=== PATIENT | male | born 1965 | race African-American/Black ===

== ENCOUNTER 2019-02-26 03:28 | Inpatient (IN) | payer MEDICARE, BC ==
[2019-02-26] VITALS (10 sets, daily range): BP systolic 79–104; BP diastolic 50–74; Ht 190.5 cm; Wt 99.8 kg
[~2019-02-26] VITALS: Ht 190.5 cm; Wt 99.8 kg
[2019-02-26] MEDS ORDERED: RENVELA800 MG PO (05:30)
[2019-02-26] MEDS ORDERED: GABAPENTIN100 MG PO (05:32)
[2019-02-26] MEDS ORDERED: SODIUM BICARBO650 MG PO (05:32)
[2019-02-26] MEDS ORDERED: MIDODRINE HCL10 MG PO (05:33)
[2019-02-26] MEDS ORDERED: ASPIRIN EC81 M1 PO (05:35)
[2019-02-26] MEDS ORDERED: HYDROCODON-ACE1 EA10 PO (05:35)
--- NOTE | 2019-02-26 05:39 | NUR ---
PT PLACED IN TRACTION ON THE FLOOR PER ER NURSES. PT TOLERATED WELL.
--- NOTE | 2019-02-26 05:44 | NUR ---
RECEIVED TO ROOM VIA [facility] FROM ER. AWAKE,ALERT.NO COMPLAITNS AT PRESENT. PORTABLE BUCKS TRACTION APPLIED TO RLE. TOLERATED WELL. ORIENTED TO ROOM. CL IN REACH
--- NOTE | 2019-02-26 07:44 | NUR ---
I have reviewed this patient and I concur with the Shift Assessment completed by the Licensed Practical Nurse today this shift.
--- NOTE | 2019-02-26 08:28 | NUR ---
0700 SUPINE IN BED WITH PORTABLE BUCKS TRACTIION IN PLACE TO RIGHT LEG INSTRUCTED NPO FOR POSSIBLE SURGICAL PROCEEDURE TODAY VERBALIZED UNDERSTANDING
--- NOTE | 2019-02-26 08:29 | NUR ---
0808 C/O PAIN 02/14 TO RIGHT LEG MORPHINE 2MG IV GIVEN OSTOMY CARE PROVIDED
--- NOTE | 2019-02-26 08:34 | NUR ---
6014 DR RODRIGUEZ AT BEDSIDE DISCUSSING SURGICAL PROCEEDURE PATIENT WAS ALLLOWED TO ASK QUESTIONS AND RECEIVED ANSWERS FROM SURGEON
[2019-02-26 09:16] LABS: BASOPHILS 0.3 % (0-2); HEMATOCRIT 32.5 % (42.0-54.0); HEMOGLOBIN 10.7 g/dL (13.5-17.5); IMMATURE GRANULOCYTES 0.2 % (0-5); LYMPHOCYTES 20.7 % (15-50); MCHC 32.9 g/dL (31.0-37.0); MCV 94.2 fL (80.0-100.0); MEAN PLATELET VOLUME 9.2 fL (7.4-10.4); MONOCYTES 6.9 % (2-11); NEUTROPHILS 69.9 % (40-80); PLATELET COUNT 294 10x3/uL (130-400); RBC 3.45 10x6/uL (4.20-6.10); RDW 15.3 % (11.5-14.5); WBC 11.6 10x3/uL (4.8-10.8)
[2019-02-26 09:32] LABS: ANION GAP 14.9 mmol/L (8-16); CALCIUM 8.5 mg/dL (8.5-10.1); CARBON DIOXIDE 23.9 mmol/L (21.0-32.0); CREATININE - SERUM 8.8 mg/dL (0.6-1.3); POTASSIUM - SERUM 4.8 mmol/L (3.5-5.1)
--- NOTE | 2019-02-26 13:14 | NUR ---
1000 PREOP GIVEN NOTIFIED PHARMACY THAT ANCEF IVPB WAS NOT AVAILABLE ON [facility] UNIT
--- NOTE | 2019-02-26 13:16 | NUR ---
1015 SURGICAL AND ANESTHESIA CONSENTS BOTH SIGNED BY PATIENT
--- NOTE | 2019-02-26 13:17 | NUR ---
1045 OR STAFF MEMBER TRANSPORTED PATIENT TO OR CALLED PHARMACY TO TAKE ANCEF TO OR INFORMED OR STAFF MEMBER TO BE ON LOOKOUT FOR IVPB
--- NOTE | 2019-02-26 18:21 | NUR ---
1600 RETURNED FROM PACU FREQUENT VITAL SIGNS INITIATED NUTRITION PROVIDED KATIUSKA DARNELL AND SCD PLACED ON JAYNE LEGS PULSE AND NEURO CHECKS Q 2 HOURS
[2019-02-27 01:28] VITALS: BP 105/71
[2019-02-27 04:59] VITALS: BP 112/64
--- NOTE | 2019-02-27 09:00 | NUR ---
ALERT AND ORIETED X4 WITHDRESSIGN INTACT TO RT. FEMURHEMOSPLIT CATH NOTED TO RT. CHEST. COLOSTOMY INTACT. IV TO RT. WRIST W/O ANY S/S OF INFECTION/INFILTRATION. SCD INTACT. ENCOURAGED TO USE CALL LIGHT FOR ASSIST.
[2019-02-27 09:01] VITALS: BP 101/53
--- NOTE | 2019-02-27 10:30 | NUR ---
PT ASSISTED VIA BED TO DIALYSIS AND STABLE AT TIME OF DEPARTURE.
[2019-02-27 11:25] LABS: ANION GAP 17.4 mmol/L (8-16); CARBON DIOXIDE 21.5 mmol/L (21.0-32.0); POTASSIUM - SERUM 4.9 mmol/L (3.5-5.1)
[2019-02-27 11:27] LABS: CREATININE - SERUM 11.5 mg/dL (0.6-1.3)
--- NOTE | 2019-02-27 15:05 | NUR ---
PT RETURNED TO ROOM AND STABLE WITH COLOSTOMY EMPTIED.
[2019-02-27 17:25] VITALS: BP 113/54
[2019-02-27 20:40] VITALS: BP 87/52
--- NOTE | 2019-02-27 22:06 | NUR ---
PATIENT IN BED ALERT AND ORENTED ABLE TO VOICE NEEDS AND WANTS TO STAFF. CALL LIGHT AND WATER IN REACH. DRESSING CDI TO RIGHT LEG. KATIUSKA HOSE AND SCD'S IN PLACE. TELEMETRY IN PLACE. FISTULA IN PLACE TO LEFT ARM ARM. HEMO SPLIT IN PLACE TO RIGHT CHEST, RIGHT WRIST IV WITH NS AT KVO. CLOSTOMY TO RIGHT SIDE OF ABD. BED LOW.
[2019-02-28 00:19] VITALS: BP 94/40
[2019-02-28 04:50] VITALS: BP 87/53
[2019-02-28 07:13] LABS: HEPATITIS C ANTIBODY <0.1 S/CO RAT (0.0-0.9)
[2019-02-28 08:58] VITALS: BP 86/44
--- NOTE | 2019-02-28 09:00 | NUR ---
ALERT AND ORIENTED X4 WITH DRESSING INTACT TO RT. FEMUR WITH NO PERIPHERAL EDEMA NOTED. KATIUSKA HOSE AND SCD INTACT WITH PEDAL PULSES NOTED. HEMOSPLIT INTACT TO RUQ OF CHEST WITH ANY S/S OF INFECTION/INFILTRATION. FALL PRECAUTIONS IN PLACE. ENCOURAGED TO USE CALL LIGHT FOR ASSIST.
--- NOTE | 2019-02-28 10:30 | NUR ---
PT. REFUSED LAB DRAW X2.
[2019-02-28 12:35] VITALS: BP 96/55
--- NOTE | 2019-02-28 13:30 | NUR ---
PT REFUSED CT PROCEDURE AFTER ATTEMPTS X2
[2019-02-28 17:36] VITALS: BP 92/52
--- NOTE | 2019-02-28 19:54 | NUR ---
LYING IN BED WITH TV ON, PLEASANT MOOD AND AFFECT, STATES RIGHT KNEE IS SLIGHTLY BOTHERING HIM, BUT MORPHINE WAS JUST GIVEN AND HE WAS SATISFIED WITH LETTING THAT TAKE EFFECT. IV TO RIGHT WRIST IS SALINE LOC AT THIS TIME. WILL NOTE ANY CHANGE.
[2019-02-28 20:21] VITALS: BP 110/46
--- NOTE | 2019-03-01 02:24 | NUR ---
I have reviewed this patient and I concur with the Shift Assessment completed by the Licensed Practical Nurse today this shift.
[2019-03-01 04:37] VITALS: BP 96/64
--- NOTE | 2019-03-01 05:43 | NUR ---
AT 0434 COMPLAINED OF PAIN TO RLE, NORCO GIVEN PER ORDERS. NOTED TO BE EFFECTIVE AT THIS TIME.
--- NOTE | 2019-03-01 06:03 | NUR ---
REFUSED BLOOD DRAW TIMES TWO ATTEMPTS FROM Octro TECHS.
[2019-03-01 07:28] VITALS: BP 78/42
[2019-03-01 08:08] VITALS: BP 102/54
[2019-03-01 12:52] VITALS: BP 107/56
[2019-03-01 18:24] VITALS: BP 95/47
--- NOTE | 2019-03-01 19:15 | NUR ---
RECEIVED CARE FROM DAY NURSE. LYING IN BED WATCHING TV. REPORTS PAIN TO HIS RIGHT ELBOW. NO SWELLING OR ABRASIONS NOTED. WRAPPED IN MAEGAN WRAP AND HOT PACK APPLIED. DRESSING TO RIGHT LEG CDI. PULLED UP IN BED AND TURNDED TO RIGHT SIDE. PT SELF EMPTIED COLONOSCOPY. NO OTHER NEEDS VOICED AT THIS TIME. CALL LIGHT AT SIDE. HEMOSPLIT TO RIGHT CHEST CDI.
[2019-03-01 20:00] VITALS: BP 108/64
[2019-03-02] VITALS: BP 116/61
--- NOTE | 2019-03-02 00:59 | NUR ---
I have reviewed this patient and I concur with the Shift Assessment completed by the Licensed Practical Nurse today this shift.
[2019-03-02 04:00] VITALS: BP 128/74
--- NOTE | 2019-03-02 05:20 | NUR ---
REFUSED AM LABS. STATES THEY CAN DRAW IT DURING DIALYSIS.
--- NOTE | 2019-03-02 07:10 | NUR ---
ALERT AND ORIENTED, RESTING IN BED. POD #4 ORIF RIGHT FEMUR, DRESSING C/D/I. PT PARAPLEGIC. OSTOMY TO LUQ. REFUSES LAB DRAWS. SCDS ON. RESERVE BUE, HEMASPLIT TO RIGHT ARM.L IV TO RIGHT WRIST, SL. SITE PATENT WITHOUT REDNESS OR SWELLING. PT DENIES ANY NEEDS. CALL LIGHT IN REACH. WILL CONTINUE TO MONITOR.
[2019-03-02 09:02] VITALS: BP 132/80
--- NOTE | 2019-03-02 09:52 | NUR ---
I have reviewed this patient and I concur with the Shift Assessment completed by the Licensed Practical Nurse today this shift.
[2019-03-02 11:06] LABS: BASOPHILS 0.8 % (0-2); EOSINOPHILS 5.7 % (0-7); IMMATURE GRANULOCYTES 0.2 % (0-5); LYMPHOCYTES 21.6 % (15-50); MCH 31.3 pg (26.0-34.0); MCHC 34.7 g/dL (31.0-37.0); MCV 90.2 fL (80.0-100.0); MEAN PLATELET VOLUME 8.8 fL (7.4-10.4); MONOCYTES 5.9 % (2-11); NEUTROPHILS 65.8 % (40-80); PLATELET COUNT 324 10x3/uL (130-400); RDW 15.2 % (11.5-14.5); WBC 6.1 10x3/uL (4.8-10.8)
[2019-03-02 11:10] LABS: RBC 1.63 10x6/uL (4.20-6.10)
[2019-03-02 11:11] LABS: HEMATOCRIT 14.7 % (42.0-54.0); HEMOGLOBIN 5.1 g/dL (13.5-17.5)
--- NOTE | 2019-03-02 11:15 | NUR ---
CRITICAL LABS CALLED IN. RBC 1.63, HGB 5.1, AND HCT 14.7. NOTIFIED SAVI POOL APRN. PT IN DIALYSIS AT THIS TIME.
[2019-03-02 11:19] LABS: ALBUMIN 2.1 g/dL (3.4-5.0); BILIRUBIN - TOTAL 0.28 mg/dL (0.2-1.3); CALCIUM 7.8 mg/dL (8.5-10.1); CARBON DIOXIDE 28.2 mmol/L (21.0-32.0); POTASSIUM - SERUM 4.2 mmol/L (3.5-5.1); PROTEIN - SERUM 6.2 g/dL (6.4-8.2)
[2019-03-02 12:04] LABS: % SATURATION 22 % (15-55); IRON 37 ug/dl (35-150); TOTAL IRON BIND CAPACITY 161 ug/dl (260-445); UNSAT IRON BIND CAPACITY 124 ug/dl (150-375)
--- NOTE | 2019-03-02 14:30 | NUR ---
Nutrition follow-up: Diet: Regular PO intake 75-100% of meals Pt will not eat a renal diet; however, labs reviewed and K WNL at this time POD 4 of ffemur IM nailing +BM, colostomy due to paraplegia Wt: 219# RDN following.
[2019-03-02 17:14] LABS: HEMATOCRIT 22.2 % (42.0-54.0); HEMOGLOBIN 7.7 g/dL (13.5-17.5)
[2019-03-02 18:02] VITALS: BP 128/66
--- NOTE | 2019-03-02 19:01 | NUR ---
ALERT AND ORIENTED, RESTING IN BED. NO C/O PAIN. NO S/S OF ACUTE DISTRESS NOTED. CALL LIGHT IN REACH. PT DENIES ANY NEEDS.
[2019-03-02 20:00] VITALS: BP 132/80
--- NOTE | 2019-03-02 23:00 | NUR ---
A&O X 4, SUPIN IN BED. DRESSING TO RIGHT LEG C/D/I. PT REQUESTSED TO REMOVE SCDs. PT CHANGED OUT COLOSTOMY DRESSING INDEPENDENTLY. PT REFUSED LAB TO DRAW H&H. REPORTS PAIN 02/14. WILL CONTINUE TO MONITOR.
[2019-03-03] VITALS: BP 130/73
[2019-03-03 04:00] VITALS: BP 129/71
[2019-03-03 07:29] LABS: ALBUMIN 2.2 g/dL (3.4-5.0); ANION GAP 14.3 mmol/L (8-16); BILIRUBIN - TOTAL 0.35 mg/dL (0.2-1.3); CALCIUM 8.4 mg/dL (8.5-10.1); CARBON DIOXIDE 27.9 mmol/L (21.0-32.0); POTASSIUM - SERUM 4.2 mmol/L (3.5-5.1); PROTEIN - SERUM 6.8 g/dL (6.4-8.2)
[2019-03-03 07:31] LABS: CREATININE - SERUM 8.9 mg/dL (0.6-1.3)
[2019-03-03 07:37] LABS: BASOPHILS 0.5 % (0-2); EOSINOPHILS 4.7 % (0-7); HEMATOCRIT 20.3 % (42.0-54.0); IMMATURE GRANULOCYTES 0.3 % (0-5); MCH 30.3 pg (26.0-34.0); MCHC 34.5 g/dL (31.0-37.0); MEAN PLATELET VOLUME 8.9 fL (7.4-10.4); MONOCYTES 9.4 % (2-11); NEUTROPHILS 67.1 % (40-80); PLATELET COUNT 348 10x3/uL (130-400); RDW 15.9 % (11.5-14.5)
[2019-03-03 07:39] LABS: RBC 2.31 10x6/uL (4.20-6.10); WBC 12.5 10x3/uL (4.8-10.8)
[2019-03-03 07:40] LABS: MCV 87.9 fL (80.0-100.0)
--- NOTE | 2019-03-03 07:44 | NUR ---
PT RESTING IN BED WITH EYES OPEN, ALERT AND ORIENTED. IV LOCATED TO RIGHT HAND HAS JUST STARTED LEAKING, APPLICATIONS MANAGER NURSE SHAYLEE IS REMOVING UPON BEDSIDE SHIFT REPORT. COLOSTOMY LOCATED TO RIGHT SIDE OF ABDOMEN. DENIES ANY NEEDS AT THIS TIME. BED LOW, CALL LIGHT IN REACH, WILL CONTINUE TO MONITOR.
--- NOTE | 2019-03-03 08:05 | NUR ---
CRITICAL HGB OF 7, REPORTED TO GUILLE CHATMAN.
[2019-03-03 09:08] VITALS: BP 117/72
[2019-03-03 11:25] LABS: HEMATOCRIT 22.8 % (42.0-54.0); HEMOGLOBIN 7.8 g/dL (13.5-17.5)
--- NOTE | 2019-03-03 11:31 | MORECARE ---
CASE MANAGEMENT DISCHARGE SUMMARY PATIENT: SUN ANDUJAR UNIT: [id number] ADM DATE: 02/26/19 AGE: 54 : 61 SEX: M ROOM/BED: D.2238 AUTHOR: BETH PIERCE PHYSICIAN: REFERRING PHYSICIAN: FELIPA SYLVESTER DO DATE OF SERVICE: 03/03/19 Discharge Plan Patient Name: SUN ANDUJAR Facility: [facility]:[place] : 1965 Planned Disposition: Home Anticipated Discharge Date: Discharge Date: Expected LOS: Initial Reviewer: [email or web address] Initial Review Date: 03/03/2019 Generated: 03/03/19 12:31 pm Coverage Notice Reviewer: [email or web address] - Sara Ward Notice Issued Date-Time: 03/03/2019 11:29 Notice Type: IM Discharge Notice Notice Delivered To: Patient Relationship to Patient: Self Third Helper Name: Delivery Method: HAND - Hand Delivered Yane Days: Prior Verbal Notification: Recipient Understood Notice: Yes Recipient Signature: Yes Med Rec Note Co-signed by Attending: Coverage Notice Comment: IMM explained, signed, given, copy placed in MR Patient Name: SUN ANDUJAR Page [id number] at 1131 All edits/amendments must be made on the electronic document DICTATION DATE: 03/03/19 113 PROMOTIONS EXECUTIVE: BLANCHE 03/03/19 1131 RPT#: [id number] DC DATE: STATUS: ADM IN [facility] [address] [place] [address] END OF REPORT
--- NOTE | 2019-03-03 11:38 | MORECARE ---
CASE MANAGEMENT DISCHARGE SUMMARY PATIENT: SUN ANDUJAR UNIT: [id number] ADM DATE: 02/26/19 AGE: 54 : 61 SEX: M ROOM/BED: D.2238 AUTHOR: STAN,DOC PHYSICIAN: REFERRING PHYSICIAN: FELIPA SYLVESTER DO DATE OF SERVICE: 03/03/19 Discharge Plan Patient Name: SUN ANDUJAR Facility: [facility]:[place] : 1965 Planned Disposition: Home Anticipated Discharge Date: Discharge Date: Expected LOS: Initial Reviewer: [email or web address] Initial Review Date: 03/03/2019 Generated: 03/03/19 12:38 pm Comments DCP- Discharge Planning Updated by [email or web address]: Sara Ward on 03/03/19 10:[address] Patient Name: SUN ANDUJAR Admission Status: ER Accout number: [id number] Admission Date: 02-26-2019 : 1965 Admission Diagnosis:UNSP FRACTURE OF LEFT FEMUR, INIT ENCNTR FOR CLOSED FRA Attending: FELIPA SYLVESTER Current LOS: 5 Anticipated DC Date: Planned Disposition: Home Primary Insurance: MEDICARE A & B Discharge Planning Comments: Patient is wanting to go home. CM met with patient and his spouse concerning discharge planning/needs. He is a transfer from [facility] in [place]. He states he has 2 wheelchairs at home. States he is independent with all his care. States he drives himself to [facility] every MWF in [place]. States he does his own transfers with a transfer board. I discussed availability of home health and DME, ne declines need. His will transport him home on discharge. CM will continue to follow and assist with discharge planning/needs. Chicken Sexer: Sara Ward DCPIA - Discharge Planning Initial Assessment Updated by [id number]: Sara Ward on 03/03/19 11:34 am * Is the patient Alert and Oriented? Yes * How many steps to enter\exit or inside your home? Ramp/0 * PCP Dr. Campbell in [place] * [facility] in [place] * Preadmission Environment Home with Family * ADLs Partial Dependent * Partial ADLs (Assistance needed) Ambulation * Equipment Ostomy Supplies Other Wheelchair * Other Equipment Transfer board * List name and contact numbers for known caregivers / representatives who currently or will assist patient after discharge: Rodrigo Andujar - spouse - [phone] * Verbal permission to speak to the caregivers and representatives has been obtained from the patient. Yes * Community resources currently utilized Other * Please name any agencies selected above. [facility] in [place] * Additional services required to return to the preadmission environment? No * Can the patient safely return to the preadmission environment? Yes * Has this patient been hospitalized within the prior 30 days at any hospital? No Coverage Notice Reviewer: [email or web address] Janneth Ward Notice Issued Date-Time: 03/03/2019 11:29 Notice Type: IM Discharge Notice Notice Delivered To: Patient Relationship to Patient: Self Supervisor Carding Name: Delivery Method: HAND - Hand Delivered Yane Days: Prior Verbal Notification: Recipient Understood Notice: Yes Recipient Signature: Yes Med Rec Note Co-signed by Attending: Coverage Notice Comment: IMM explained, signed, given, copy placed in MR Last DP export: 03/03/19 10:31 a Patient Name: SUN ANDUJAR Page [phone] at 1138 All edits/amendments must be made on the electronic document DICTATION DATE: 03/03/19 1138 COIL FINISHER: BLANCHE 03/03/19 1138 RPT#: [id number] DC DATE: STATUS: ADM IN [facility] [address] [place] [address] END OF REPORT
[2019-03-03] MEDS ORDERED: ELIQUIS2.5 MG PO (12:01)
--- NOTE | 2019-03-05 08:33 | MORECARE ---
CASE MANAGEMENT DISCHARGE SUMMARY PATIENT: SUN ANDUJAR UNIT: [id number] ADM DATE: 02/26/19 AGE: 54 : 61 SEX: M ROOM/BED: D.2238 AUTHOR: STAN,DOC PHYSICIAN: REFERRING PHYSICIAN: FELIPA SYLVESTER DO DATE OF SERVICE: 03/05/19 Discharge Plan Patient Name: SUN ANDUJAR Facility: [facility]:[place] : 1965 Planned Disposition: Home Anticipated Discharge Date: Discharge Date: 03/03/2019 Expected LOS: 0 Initial Reviewer: [email or web address] Initial Review Date: 03/03/2019 Generated: 03/05/19 9:33 am Comments DCP- Discharge Planning Updated by [email or web address]: Sara Ward on 03/03/19 10:[address] Patient Name: SUN ANDUJAR Admission Status: ER Accout number: [id number] Admission Date: 02-26-2019 : 1965 Admission Diagnosis:UNSP FRACTURE OF LEFT FEMUR, INIT ENCNTR FOR CLOSED FRA Attending: FELIPA SYLVESTER Current LOS: 5 Anticipated DC Date: Planned Disposition: Home Primary Insurance: MEDICARE A & B Discharge Planning Comments: Patient is wanting to go home. CM met with patient and his spouse concerning discharge planning/needs. He is a transfer from [facility] in [place]. He states he has 2 wheelchairs at home. States he is independent with all his care. States he drives himself to [facility] every MWF in [place]. States he does his own transfers with a transfer board. I discussed availability of home health and DME, ne declines need. His will transport him home on discharge. CM will continue to follow and assist with discharge planning/needs. Imagery Analyst: Sara Ward DCPIA - Discharge Planning Initial Assessment Updated by [id number]: Sara Ward on 03/03/19 11:34 am * Is the patient Alert and Oriented? Yes * How many steps to enter\exit or inside your home? Ramp/0 * PCP Dr. Campbell in [place] * [facility] in [place] * Preadmission Environment Home with Family * ADLs Partial Dependent * Partial ADLs (Assistance needed) Ambulation * Equipment Ostomy Supplies Other Wheelchair * Other Equipment Transfer board * List name and contact numbers for known caregivers / representatives who currently or will assist patient after discharge: Rodrigo nAdujar - spouse - [phone] * Verbal permission to speak to the caregivers and representatives has been obtained from the patient. Yes * Community resources currently utilized Other * Please name any agencies selected above. [facility] in [place] * Additional services required to return to the preadmission environment? No * Can the patient safely return to the preadmission environment? Yes * Has this patient been hospitalized within the prior 30 days at any hospital? No Coverage Notice Reviewer: [id number] Janneth Ward Notice Issued Date-Time: 03/03/2019 11:29 Notice Type: IM Discharge Notice Notice Delivered To: Patient Relationship to Patient: Self [employer] Cook Name: Delivery Method: HAND - Hand Delivered Yane Days: Prior Verbal Notification: Recipient Understood Notice: Yes Recipient Signature: Yes Med Rec Note Co-signed by Attending: Coverage Notice Comment: IMM explained, signed, given, copy placed in MR Last DP export: 03/03/19 10:39 a Patient Name: SUN ANDUJAR Page [id number] at 0833 All edits/amendments must be made on the electronic document DICTATION DATE: 03/05/19832 TIRE WORKER: BLANCHE 03/05/19832 RPT#: [id number] DC DATE:03/03/19 STATUS: DIS IN [facility] [address] [place] [address] END OF REPORT
== END 2019-03-03 15:08 | disposition home or self-care (01) | DRG 480 ==
LOC: D.ER 03:28 → D.MS 03:58
PROVIDERS: Internal Medicine Nephrology; Orthopaedic Surgery; ADMIT Family Medicine; ATTEND Family Medicine
PROC: 0QSB06Z Reposition Right Lower Femur with Intramedullary Internal Fixation Device, Open Approach (ICD-10-PCS; principal; 2019-02-26 09:30)
DX: S72.351A Displaced comminuted fracture of shaft of right femur, initial encounter for closed fracture (principal); N18.6 End stage renal disease; G82.20 Paraplegia, unspecified; D62 Acute posthemorrhagic anemia; W05.0XXA Fall from non-moving wheelchair, initial encounter; Z99.2 Dependence on renal dialysis; D63.1 Anemia in chronic kidney disease; I95.9 Hypotension, unspecified; E83.39 Other disorders of phosphorus metabolism

== ENCOUNTER 2019-03-17 16:58 | Emergency (ER) | payer MEDICARE, BC ==
[~2019-03-17] VITALS: Ht 190.5 cm; Wt 102.3 kg
[~2019-03-17 16:58] MED LIST: ASPIRIN EC81 M1 PO; ELIQUIS2.5 MG PO; GABAPENTIN100 MG PO; HYDROCODON-ACE1 EA10 PO; MIDODRINE HCL10 MG PO; RENVELA800 MG PO; SODIUM BICARBO650 MG PO
[2019-03-17 17:31] VITALS: Ht 190.5 cm; Wt 102.3 kg
[2019-03-17 18:13] LABS: BASOPHILS 0.3 % (0-2); EOSINOPHILS 3.7 % (0-7); HEMATOCRIT 22.9 % (42.0-54.0); IMMATURE GRANULOCYTES 0.2 % (0-5); LYMPHOCYTES 17.3 % (15-50); MCH 30.6 pg (26.0-34.0); MCHC 32.8 g/dL (31.0-37.0); MCV 93.5 fL (80.0-100.0); MEAN PLATELET VOLUME 8.5 fL (7.4-10.4); NEUTROPHILS 73.5 % (40-80); RBC 2.45 10x6/uL (4.20-6.10); RDW 15.1 % (11.5-14.5); WBC 10.3 10x3/uL (4.8-10.8)
[2019-03-17 18:23] LABS: HEMOGLOBIN 7.5 g/dL (13.5-17.5); PLATELET COUNT 590 10x3/uL (130-400)
[2019-03-17 18:33] LABS: ALBUMIN 3.1 g/dL (3.4-5.0); ANION GAP 17.8 mmol/L (8-16); BILIRUBIN - TOTAL 0.34 mg/dL (0.2-1.3); CALCIUM 8.4 mg/dL (8.5-10.1); CARBON DIOXIDE 22.2 mmol/L (21.0-32.0); CREATININE - SERUM 10.1 mg/dL (0.6-1.3); PROTEIN - SERUM 8.1 g/dL (6.4-8.2)
[2019-03-17 19:18] VITALS: BP 113/64
== END 2019-03-17 19:18 | disposition home or self-care (01) ==
LOC: D.ER 16:58
PROVIDERS: Family Medicine
DX: N18.6 End stage renal disease (principal); D63.1 Anemia in chronic kidney disease; G82.20 Paraplegia, unspecified